=== PATIENT | male | born 1980 | race Caucasian/White ===

== ENCOUNTER 2018-05-29 04:01 | Emergency (ER) | payer OTHER ==
[~2018-05-29] VITALS: Ht 175.3 cm; Wt 122.5 kg
[~2018-05-29 04:01] MED LIST: AMOX1TAB12 PO; INTESTINEX680 MG PO
== END 2018-05-29 08:49 | disposition home or self-care (01) ==
LOC: ER 04:01
DX: R07.89 Other chest pain (principal)